=== PATIENT | male | born 1980 | race Caucasian/White ===

== ENCOUNTER 2016-08-09 12:14 | Emergency (ER) | payer SELFPAY ==
[2016-08-09 12:28] VITALS: BP 124/85
[2016-08-09 12:45] LABS: Basophils % (Auto) 0.7 % (0.0-1.8); Eosinophils % (Auto) 0.6 % (0.0-4.3); Hematocrit 46.9 % (35.5-45.6); Hemoglobin 16.1 gm/dl (11.8-15.2); Mean Corpuscular HGB Conc 34 % (32-34); Mean Corpuscular Hemoglobin 32 pg (28-32); Mean Corpuscular Volume 94 fl (84-94); Platelet Count 364 K/mm3 (140-440); Red Cell Distribution Width 13.9 % (13.2-15.2); White Blood Count 9.8 K/mm3 (4.5-11.0)
[2016-08-09 13:03] LABS: Anion Gap 28 mmol/L; Blood Urea Nitrogen 10 mg/dL (9-20); Calcium 8.6 mg/dL (8.4-10.2); Carbon Dioxide 21 mmol/L (22-30); Glucose 136 mg/dL (75-100); Potassium 3.6 mmol/L (3.6-5.0); Sodium 142 mmol/L (137-145)
--- NOTE | 2016-08-12 09:38 | ED Elopement Review ---
ED Pt Elopement review - Results review Lab results: Laboratory Tests 08/09/16 08/09/16 08/09/16 12:31 12:31 12:31 WBC 9.8 RBC 5.00 Hgb 16.1 H Hct 46.9 H MCV 94 MCH 32 MCHC 34 RDW 13.9 Plt Count 364 Lymph % (Auto) 28.5 [place] % (Auto) 6.1 Eos % (Auto) 0.6 Baso % (Auto) 0.7 Lymph # 2.8 [place] # 0.6 Eos # 0.1 Baso # 0.1 Seg Neutrophils % 64.1 Seg Neutrophils # 6.3 Sodium 142 Potassium 3.6 Chloride 97.0 L Carbon Dioxide 21 L Anion Gap 28 BUN 10 Creatinine 0.8 Estimated GFR > 60 BUN/Creatinine Ratio 12.50 Glucose 136 H Calcium 8.6 Plasma/Serum Alcohol 0.32 H - Call Back decision Pt Call Back Decision: No action required
== END 2016-08-09 19:35 | disposition left against medical advice (07) ==
LOC: ED 12:14
DX: F10.129 Alcohol abuse with intoxication, unspecified (principal); M79.1 Myalgia; R21 Rash and other nonspecific skin eruption; Z53.21 Procedure and treatment not carried out due to patient leaving prior to being seen by health care provider
CPT/HCPCS: 36415; 80048; 85025; G0480; 80320

== ENCOUNTER 2016-08-10 09:41 | Inpatient (IN) | payer OTHER ==
[2016-08-10 10:49] LABS: Basophils % (Auto) 0.3 % (0.0-1.8); Eosinophils % (Auto) 0.1 % (0.0-4.3); Hematocrit 48.3 % (35.5-45.6); Hemoglobin 15.8 gm/dl (11.8-15.2); Mean Corpuscular HGB Conc 33 % (32-34); Mean Corpuscular Hemoglobin 31 pg (28-32); Mean Corpuscular Volume 94 fl (84-94); Platelet Count 368 K/mm3 (140-440); Red Blood Count 5.15 M/mm3 (3.65-5.03); Red Cell Distribution Width 13.8 % (13.2-15.2); White Blood Count 12.2 K/mm3 (4.5-11.0)
[2016-08-10 10:51] LABS: Anion Gap 32 mmol/L; Blood Urea Nitrogen 10 mg/dL (9-20); Calcium 8.7 mg/dL (8.4-10.2); Carbon Dioxide 19 mmol/L (22-30); Chloride 92.3 mmol/L (98-107); Glucose 103 mg/dL (75-100); Potassium 3.9 mmol/L (3.6-5.0); Sodium 139 mmol/L (137-145)
[2016-08-10] MEDS ORDERED: NACL 0.9% 1000 ML 1,000 ML IV ONE ×3 (14:05→19:17)
[2016-08-10] MEDS ORDERED: NACL 0.9% 1000 ML 1,000 ML ONE (14:09)
[2016-08-10] MEDS ORDERED: ATIVAN IV ONE (15:00)
--- NOTE | 2016-08-10 15:06 | Emergency Department Report ---
ED Alcohol HPI - General Chief Complaint: Psych Stated Complaint: BODY PAIN Time Seen by Provider: 08/10/16 14:53 Source: patient, EMS Mode of arrival: Wheelchair Limitations: Other - History of Present Illness Initial Comments: The patient comes into the ER today after being brought in by EMS. Through translation, patient states that he lives with his brother but that he stayed in a hotel last night. Patient states that he vomited after being discharged from this ER yesterday and that he has not been feeling good since going home. Patient denies drinking any more alcohol since being discharged. Patient does state that he has vomited blood a couple times as well. Patient currently complaining of abdominal pain, left-sided chest pain, left shoulder pain, headache. Patient denies any suicidal ideations. Patient denies any other drug use other than alcohol. Patient states that he has been drinking daily for the past 1.5 months. - Related Data Allergies Allergy/AdvReac Type Severity Reaction Status Date / Time No Known Allergies Allergy Unverified 08/09/16 12:23 ED Review of Systems ROS: Stated complaint: BODY PAIN Other details as noted in HPI Constitutional: denies: chills, fever Eyes: denies: eye pain, eye discharge, vision change ENT: denies: ear pain, throat pain Respiratory: denies: cough, shortness of breath, wheezing Cardiovascular: chest pain (left lateral chest wall pain). denies: palpitations , edema Endocrine: no symptoms reported Gastrointestinal: abdominal pain, nausea, vomiting, hematemesis. denies: diarrhea Genitourinary: denies: urgency, dysuria Musculoskeletal: arthralgia (left shoulder pain). denies: back pain, joint swelling Skin: denies: rash, lesions Neurological: denies: headache, weakness, paresthesias Psychiatric: other (extremity shaking and tremors). denies: anxiety, depression Hematological/Lymphatic: denies: easy bleeding, easy bruising ED Past Medical Hx - Past Medical History Previous Medical History?: Yes Hx Psychiatric Treatment: Yes (drug use) - Surgical History Past Surgical History?: No - Social History Smoking Status: Current Every Day Smoker Substance Use Type: Alcohol, Marijuana ED Physical Exam - General Limitations: Other General appearance: alert, in no apparent distress, appears intoxicated, lethargic - Head Head exam: Present: atraumatic, normocephalic - Eye Eye exam: Present: normal appearance, PERRL - ENT ENT exam: Present: mucous membranes moist - Neck Neck exam: Present: normal inspection - Respiratory Respiratory exam: Present: normal lung sounds bilaterally, chest wall tenderness. Absent: respiratory distress, wheezes, rales, rhonchi, decreased breath sounds - Cardiovascular Cardiovascular Exam: Present: normal rhythm, tachycardia. Absent: systolic murmur, diastolic murmur, rubs, gallop - GI/Abdominal GI/Abdominal exam: Present: soft, tenderness (epigastric abdominal tenderness), normal bowel sounds. Absent: distended, guarding, rebound - Rectal Rectal exam: Present: deferred - Extremities Exam Extremities exam: Present: normal inspection, tenderness (left anterior shoulder tenderness) - Back Exam Back exam: Present: normal inspection - Neurological Exam Neurological exam: Present: alert, oriented X3, CN II-XII intact - Psychiatric Psychiatric exam: Present: normal affect, normal mood. Absent: agitated, homicidal ideation, suicidal ideation - Skin Skin exam: Present: warm, dry, intact, normal color, diaphoretic. Absent: rash ED Course Vital Signs 08/10/16 08/10/16 08/10/16 10:13 13:47 14:00 Temperature 98.7 F Pulse Rate 138 H 128 H Respiratory 18 22 Rate Blood Pressure 135/86 135/81 127/86 O2 Sat by Pulse 98 96 Oximetry 08/10/16 08/10/16 08/10/16 14:16 14:30 14:46 Temperature Pulse Rate 124 H 129 H 131 H Respiratory 16 18 16 Rate Blood Pressure 135/81 135/81 135/81 O2 Sat by Pulse 97 97 98 Oximetry 08/10/16 08/10/16 08/10/16 15:00 15:16 15:30 Temperature Pulse Rate 135 H 135 H 128 H Respiratory 14 30 H 14 Rate Blood Pressure 118/88 118/88 134/85 O2 Sat by Pulse 99 100 98 Oximetry 08/10/16 08/10/16 08/10/16 15:44 15:56 16:00 Temperature Pulse Rate 135 H 128 H Respiratory 14 19 14 Rate Blood Pressure O2 Sat by Pulse 99 100 100 Oximetry 08/10/16 08/10/16 08/10/16 16:15 16:18 16:30 Temperature 99 F Pulse Rate 132 H 143 H Respiratory 17 12 Rate Blood Pressure 134/79 132/71 O2 Sat by Pulse 100 98 Oximetry 08/10/16 08/10/16 16:45 17:00 Temperature Pulse Rate 142 H 146 H Respiratory 13 17 Rate Blood Pressure 124/76 120/74 O2 Sat by Pulse 93 96 Oximetry ED Medical Decision Making - Lab Data Result diagrams: 08/10/16 10:22 08/10/16 10:22 Lab Results 08/10/16 08/10/16 08/10/16 Range/Units 10:22 10:22 10:22 WBC 12.2 H (4.5-11.0) K/mm3 RBC 5.15 H (3.65-5.03) M/mm3 Hgb 15.8 H (11.8-15.2) gm/dl Hct 48.3 H (35.5-45.6) % MCV 94 (84-94) fl MCH 31 (28-32) pg MCHC 33 (32-34) % RDW 13.8 (13.2-15.2) % Plt Count 368 (140-440) K/mm3 Lymph % (Auto) 10.4 L (13.4-35.0) % [place] % (Auto) 5.3 (0.0-7.3) % Eos % (Auto) 0.1 (0.0-4.3) % Baso % (Auto) 0.3 (0.0-1.8) % Lymph # 1.3 (1.2-5.4) K/mm3 [place] # 0.6 (0.0-0.8) K/mm3 Eos # 0.0 (0.0-0.4) K/mm3 Baso # 0.0 (0.0-0.1) K/mm3 Seg Neutrophils % 83.9 H (40.0-70.0) % Seg Neutrophils # 10.2 H (1.8-7.7) K/mm3 PT (12.2-14.9) Sec. INR (0.87-1.13) APTT (24.2-36.6) Sec. Sodium 139 (137-145) mmol/L Potassium 3.9 (3.6-5.0) mmol/L Chloride 92.3 L (98-107) mmol/L Carbon Dioxide 19 L (22-30) mmol/L Anion Gap 32 mmol/L BUN 10 (9-20) mg/dL Creatinine 0.8 (0.8-1.5) mg/dL Estimated GFR > 60 ml/min BUN/Creatinine Ratio 12.50 % Glucose 103 H (75-100) mg/dL Calcium 8.7 (8.4-10.2) mg/dL Total Bilirubin (0.1-1.2) mg/dL Direct Bilirubin (0-0.2) mg/dL Indirect Bilirubin mg/dL AST (5-40) units/L ALT (7-56) units/L Alkaline Phosphatase (35-129) units/L Troponin T (0.00-0.029) ng/mL Total Protein (6.3-8.2) g/dL Albumin (3.9-5) g/dL Albumin/Globulin Ratio % Lipase (13-60) units/L Urine Color (Yellow) Urine Turbidity (Clear) Urine pH (5.0-7.0) Ur Specific [place] (1.003-1.030) Urine Protein (Negative) mg/dL Urine Glucose (UA) (Negative) mg/dL Urine Ketones (Negative) mg/dL Urine Blood (Negative) Urine Nitrite (Negative) Urine Bilirubin (Negative) Urine Urobilinogen (<2.0) mg/dL Ur Leukocyte Esterase (Negative) Urine WBC (Auto) (0.0-6.0) /HPF Urine RBC (Auto) (0.0-6.0) /HPF Hyaline Casts /LPF Urine Mucus /HPF Urine Opiates Screen Urine Methadone Screen Ur Barbiturates Screen Ur Phencyclidine Scrn Ur Amphetamines Screen U Benzodiazepines Scrn Urine Cocaine Screen U Marijuana (THC) Screen Plasma/Serum Alcohol 0.23 H (0-0.07) gm% 08/10/16 08/10/16 08/10/16 Range/Units 15:29 15:29 15:44 WBC (4.5-11.0) K/mm3 RBC (3.65-5.03) M/mm3 Hgb (11.8-15.2) gm/dl Hct (35.5-45.6) % MCV (84-94) fl MCH (28-32) pg MCHC (32-34) % RDW (13.2-15.2) % Plt Count (140-440) K/mm3 Lymph % (Auto) (13.4-35.0) % [place] % (Auto) (0.0-7.3) % Eos % (Auto) (0.0-4.3) % Baso % (Auto) (0.0-1.8) % Lymph # (1.2-5.4) K/mm3 [place] # (0.0-0.8) K/mm3 Eos # (0.0-0.4) K/mm3 Baso # (0.0-0.1) K/mm3 Seg Neutrophils % (40.0-70.0) % Seg Neutrophils # (1.8-7.7) K/mm3 PT 14.1 (12.2-14.9) Sec. INR 1.10 (0.87-1.13) APTT 27.0 (24.2-36.6) Sec. Sodium (137-145) mmol/L Potassium (3.6-5.0) mmol/L Chloride (98-107) mmol/L Carbon Dioxide (22-30) mmol/L Anion Gap mmol/L BUN (9-20) mg/dL Creatinine (0.8-1.5) mg/dL Estimated GFR ml/min BUN/Creatinine Ratio % Glucose (75-100) mg/dL Calcium (8.4-10.2) mg/dL Total Bilirubin 0.50 (0.1-1.2) mg/dL Direct Bilirubin < 0.2 (0-0.2) mg/dL Indirect Bilirubin 0.3 mg/dL AST 64 H (5-40) units/L ALT 53 (7-56) units/L Alkaline Phosphatase 91 (35-129) units/L Troponin T < 0.010 (0.00-0.029) ng/mL Total Protein 6.4 (6.3-8.2) g/dL Albumin 3.7 L (3.9-5) g/dL Albumin/Globulin Ratio 1.4 % Lipase 59 (13-60) units/L Urine Color Yellow (Yellow) Urine Turbidity Clear (Clear) Urine pH 5.0 (5.0-7.0) Ur Specific [place] 1.019 (1.003-1.030) Urine Protein 30 mg/dl (Negative) mg/dL Urine Glucose (UA) Neg (Negative) mg/dL Urine Ketones 20 (Negative) mg/dL Urine Blood Neg (Negative) Urine Nitrite Neg (Negative) Urine Bilirubin Neg (Negative) Urine Urobilinogen < 2.0 (<2.0) mg/dL Ur Leukocyte Esterase Neg (Negative) Urine WBC (Auto) 1.0 (0.0-6.0) /HPF Urine RBC (Auto) 1.0 (0.0-6.0) /HPF Hyaline Casts 4 /LPF Urine Mucus 1+ /HPF Urine Opiates Screen Urine Methadone Screen Ur Barbiturates Screen Ur Phencyclidine Scrn Ur Amphetamines Screen U Benzodiazepines Scrn Urine Cocaine Screen U Marijuana (THC) Screen Plasma/Serum Alcohol (0-0.07) gm% 08/10/16 Range/Units 15:44 WBC (4.5-11.0) K/mm3 RBC (3.65-5.03) M/mm3 Hgb (11.8-15.2) gm/dl Hct (35.5-45.6) % MCV (84-94) fl MCH (28-32) pg MCHC (32-34) % RDW (13.2-15.2) % Plt Count (140-440) K/mm3 Lymph % (Auto) (13.4-35.0) % [place] % (Auto) (0.0-7.3) % Eos % (Auto) (0.0-4.3) % Baso % (Auto) (0.0-1.8) % Lymph # (1.2-5.4) K/mm3 [place] # (0.0-0.8) K/mm3 Eos # (0.0-0.4) K/mm3 Baso # (0.0-0.1) K/mm3 Seg Neutrophils % (40.0-70.0) % Seg Neutrophils # (1.8-7.7) K/mm3 PT (12.2-14.9) Sec. INR (0.87-1.13) APTT (24.2-36.6) Sec. Sodium (137-145) mmol/L Potassium (3.6-5.0) mmol/L Chloride (98-107) mmol/L Carbon Dioxide (22-30) mmol/L Anion Gap mmol/L BUN (9-20) mg/dL Creatinine (0.8-1.5) mg/dL Estimated GFR ml/min BUN/Creatinine Ratio % Glucose (75-100) mg/dL Calcium (8.4-10.2) mg/dL Total Bilirubin (0.1-1.2) mg/dL Direct Bilirubin (0-0.2) mg/dL Indirect Bilirubin mg/dL AST (5-40) units/L ALT (7-56) units/L Alkaline Phosphatase (35-129) units/L Troponin T (0.00-0.029) ng/mL Total Protein (6.3-8.2) g/dL Albumin (3.9-5) g/dL Albumin/Globulin Ratio % Lipase (13-60) units/L Urine Color (Yellow) Urine Turbidity (Clear) Urine pH (5.0-7.0) Ur Specific [place] (1.003-1.030) Urine Protein (Negative) mg/dL Urine Glucose (UA) (Negative) mg/dL Urine Ketones (Negative) mg/dL Urine Blood (Negative) Urine Nitrite (Negative) Urine Bilirubin (Negative) Urine Urobilinogen (<2.0) mg/dL Ur Leukocyte Esterase (Negative) Urine WBC (Auto) (0.0-6.0) /HPF Urine RBC (Auto) (0.0-6.0) /HPF Hyaline Casts /LPF Urine Mucus /HPF Urine Opiates Screen Presumptive negative Urine Methadone Screen Presumptive negative Ur Barbiturates Screen Presumptive negative Ur Phencyclidine Scrn Presumptive negative Ur Amphetamines Screen Presumptive negative U Benzodiazepines Scrn Presumptive negative Urine Cocaine Screen Presumptive negative U Marijuana (THC) Screen Presumptive negative Plasma/Serum Alcohol (0-0.07) gm% - EKG Data -: EKG Interpreted by [place] EKG shows normal: sinus rhythm Rate: tachycardia - EKG Data 08/10/16 16:24 Sinus tachycardia at 1 31 bpm. No T-wave inversion noted. - Radiology Data Radiology results: report reviewed CT report of abdomen and pelvis with contrast reveals fatty liver without any other acute process. - Medical Decision Making After several doses of IV Ativan, 2 L of normal saline IV fluids, patient continues to stay tachycardic in the 130s. Patient given Protonix 40 mg IV, started on D5 normal saline and given dose of morphine 2 mg IV here in the ER. Discussed case and treatment plan with attending Dr. Angela M.D. and recommends admitting the patient. Spoke with hospitalist Dr. Kimberlee MD and he accepts patient to [facility]. Discussed results and concerns with patient and family in room. Patient family are in agreement with treatment plan. Critical care attestation.: If time is entered above; I have spent that time in minutes in the direct care of this critically ill patient, excluding procedure time. ED Disposition Clinical Impression: Alcohol intoxication, Abdominal pain, Tachycardia Disposition: OP ADMITTED IP TO THIS HOSP Is pt being admited?: Yes Does the pt Need Aspirin: No Condition: Stable Referrals: PRIMARY CARE, [Primary Care Provider] - 3-5 Days
--- NOTE | 2016-08-10 15:20 | XRay Report ---
PORTABLE CHEST INDICATION: Left chest wall pain. COMPARISON: None similar at this institution. FINDINGS: Portable, frontal chest radiograph demonstrate mild to moderately elevated left hemidiaphragm. Clear lungs. Normal cardiomediastinal silhouette. EKG leads. Intact bones. CONCLUSION: Elevated left hemidiaphragm. Thank you for the opportunity to participate in this patient's care.
[2016-08-10] MEDS ORDERED: NACL ONE (15:33)
[2016-08-10] MEDS ORDERED: ATIVAN IV PRN (15:48)
[2016-08-10 16:06] LABS: Alanine Aminotransferase 53 units/L (7-56); Albumin 3.7 g/dL (3.9-5); Albumin/Globulin Ratio 1.4 %; Alkaline Phosphatase 91 units/L (35-129); Lipase 59 units/L (13-60); Total Protein 6.4 g/dL (6.3-8.2)
--- NOTE | 2016-08-10 16:11 | Cat Scan Report ---
CT ABDOMEN AND PELVIS WITH CONTRAST INDICATION: Epigastric pain, vomiting. COMPARISON: None similar. FINDINGS: Abdomen and pelvis CT performed following intravenous administration of 100 cc of Omnipaque 300. LUNG BASES: Elevated left hemidiaphragm incompletely imaged. ABDOMEN: Diffuse fatty hepatic infiltration. Liver though not enlarged. Spleen, pancreatic tail, stomach and splenic flexure noted subjacent to elevated left hemidiaphragm. Gallbladder, pancreas, adrenals, nonaneurysmal abdominal aorta, IVC and kidneys within normal limits. Nonopacified GI tract evaluation limited, though grossly nonobstructive. Normal appendix. Small fat-containing umbilical hernia with a transverse neck of 0.9 cm. No ascites or size significant adenopathy. PELVIS: Rectosigmoid stool. Grossly unremarkable seminal vesicles, prostate and limited urinary bladder distention. No free fluid or significant adenopathy. Unremarkable bones. CONCLUSION: Fatty liver and elevated left hemidiaphragm, as described. Thank you for the opportunity to participate in this patient's care.
[2016-08-10 16:12] LABS: Bilirubin,Direct < 0.2 mg/dL (0-0.2); Bilirubin,Indirect 0.3 mg/dL
[2016-08-10 16:15] LABS: INR 1.1 (0.87-1.13)
[2016-08-10] MEDS: ATIVAN IV PRN ×2 (16:30→17:32)
[2016-08-10 16:41] LABS: Urine Drugs of Abuse Note Disclamer
[2016-08-10 16:54] LABS: Bilirubin,Urine NEG (Negative); Blood,Urine NEG (Negative); Ketones,Urine 20 mg/dL (Negative); Leukocyte Esterase,Urine NEG (Negative); Mucus,Urine 1+ /HPF; Nitrite,Urine NEG (Negative); Urobilinogen,Urine < 2.0 mg/dL (<2.0)
[2016-08-10] MEDS ORDERED: PROTONIX IV ONE ×2 (17:19→19:22)
[2016-08-10] MEDS ORDERED: MORPHINE IV ONE (17:34)
[2016-08-10] MEDS ORDERED: D5NS 1,000 ML IV SCH (18:00)
--- NOTE | 2016-08-10 18:23 | Admit Criteria Form ---
Admission Criteria Documentation: TELEMETRY CARE Telemetry Admission Guidelines (Place 'X' for any and all applicable criteria): Admission to telemetry [A] may be indicated for ANY ONE of the following(1)(2)(3 )(4)(5): [X ]I. Cardiac disease, including ANY ONE of the following (9)(10)(11)(12)( 13): [ ]a) Postacute DC [ ]b) Low-risk patients with ST-segment elevation DC who have undergone successful percutaneous coronary intervention [ ]c) Unstable angina [ ]d) Suspected DC (until it is ruled out) [ ]e) Post cardiac surgery (first 48 to 72 hours unless complications occur) [ X]f) Acute arrhythmias (including significant tachycardia or bradycardia) [B] [ ]g) Firing of an implantable cardioverter defibrillator [C] [ ]h) Suspected pacemaker or implantable cardioverter defibrillator malfunction (10) [ ]i) New administration or adjustment of an antiarrhythmic drug [D ] [ ]j) Child admitted for acute congestive heart failure [ ]j) Long QT syndrome [ ]k) Advanced heart block (eg, second-degree Mobitz type II, third- degree heart block) [ ]l) Acute myocarditis or pericarditis [ ]m) Short-term (ambulatory or inpatient) monitoring after a cardiac procedure as indicated by ANY ONE of the following [E]: [ ]i) Electrophysiologic studies [ ]ii) Percutaneous coronary intervention with stent placement [ ]iii) Pacemaker placement with cardiac conduction defect [ ]iv) Implantable cardiac defibrillator placement [ ]II. Drug overdose or poisoning with substance that causes arrhythmias or QT prolongation (eg, phenothiazines, sympathomimetic agents, cyclic antidepressants, digitalis, antiarrhythmic drugs)(15) [ ]III. Short-term (ambulatory or inpatient) monitoring after therapeutic or diagnostic procedure requiring conscious sedation or anesthesia (eg, endoscopy, elective cardioversion) [ ]IV. Acute cerebrovascular even[F](18) [ ]V. Massive blood transfusion (eg, at least 10 units of packed red blood cells in 24 hours) [ ]. Variceal bleeding after endoscopy, sclerotherapy, or IV vasopressin [ ]VII. Uncorrected electrolyte abnormalities associated with an increased risk of dangerous arrhythmia [G]; examples include [ ]a) Hyperkalemia with attributable ECG changes [ ]b) Potassium greater than 6.5 mmol/L (mEq/L) in a patient without history of chronic renal disease [ ]c) Prolonged QT attributed to hypokalemia, hypomagnesemia, or hypocalcemia [ ]VIII.Unexplained syncope or other neurologic event suspected of being due to arrhythmia due to a finding that increases risk; examples include(19)(20)(21): [ ]a) High-risk ECG findings (eg, bifascicular block, bradycardia, abnormal QT interval, ventricular pre- excitation) [ ]b) History of previous syncope due to arrhythmia [ ]c) Abnormal ventricular function (eg, reduced ejection fraction ) [ ]d) Exertional or supine syncope [ ]e) Concerning syncope characteristics (eg, sudden loss of consciousness without prodrome) [ ]f) Family history of sudden [ ]g) Use of arrhythmogenic medication [ ]h) Suspected cardiac ischemia [ ]i) Known channelopathy (eg, long QT syndrome, Brugada syndrome, or catecholaminergic paroxysmal ventricular tachycardia) [ ]j) Known structural heart disease (eg, hypertrophic cardiomyopathy , severe valvular disease) [ ]k) Palpitations preceding syncope The original [employer] content created by [employer] has been revised. The portions of the content which have been revised are identified through the use of italic text or in bold, and [employer] [facility] has neither reviewed nor approved the modified material. All other unmodified content is copyright [employer]. Please see references footnoted in the original [employer] edition 2016 Admission Criteria Met: Yes
[2016-08-10] MEDS ORDERED: ATIVAN ONE (21:02)
--- NOTE | 2016-08-10 23:52 | Event Note ---
Date: 08/10/16 See H/p in reports ETOH Dependence Delirium Tremens Acute Gastritis
[2016-08-11] MEDS ORDERED: LIBRIUM PO ONE (00:39)
[2016-08-11] MEDS: HALDOL IV PRN (02:05)
[2016-08-11] MEDS ORDERED: VITAMIN B-1 100 MG, FOLVITE 1 MG, INFUVITE 10 ML in NACL 0.9% 1000 ML 1,000 ML IV ONE (06:42)
[2016-08-11] MEDS: 1: FOLVITE 1 MG, INFUVITE 10 ML, VITAMIN B-1 100 MG in NACL 0.9% 1000 ML 988.8 ML 2: NA IV SCH ×2 (07:05→20:23)
--- NOTE | 2016-08-11 07:54 | Progress Note ---
Assessment and Plan Assessment and plan: 36M with etoh withdrawal Delireum Tremens continue CIWA protocol Etoh dependence patient was counseled on cessation, cont B1 and folate Metabolic encephalopathy due to DTs, continue CIWA protocol as above, continue IVF History Interval history: He has been altered and agitated, has been restless and tremorous Hospitalist Physical - Physical exam Narrative exam: General: somnolent, disheveled HEENT: MMM, EOMI cardiac: S1-S2 heard lungs: clear to auscultation, abdomen: soft, nontender, nondistended bowel sounds positive extremities: no edema clubbing or cyanosis Skin: no rash or lesion Neuro: no focal deficit Psych: altered, oriented only to self, confused, clearly in etoh withdrawal - Constitutional Vitals: Temp Pulse Resp BP Pulse Ox 99 F 114 H 16 130/74 89 08/10/16 16:18 08/11/16 05:30 08/11/16 05:30 08/11/16 05:30 08/11/16 05:30 Results - Labs CBC & Chem 7: 08/11/16 10:22 08/11/16 10:22 Labs: Laboratory Last Values WBC 12.2 K/mm3 (4.5-11.0) H 08/10/16 10:22 RBC 5.15 M/mm3 (3.65-5.03) H 08/10/16 10:22 Hgb 15.8 gm/dl (11.8-15.2) H 08/10/16 10:22 Hct 48.3 % (35.5-45.6) H 08/10/16 10:22 MCV 94 fl (84-94) 08/10/16 10:22 MCH 31 pg (28-32) 08/10/16 10:22 MCHC 33 % (32-34) 08/10/16 10:22 RDW 13.8 % (13.2-15.2) 08/10/16 10:22 Plt Count 368 K/mm3 (140-440) 08/10/16 10:22 Lymph % (Auto) 10.4 % (13.4-35.0) L 08/10/16 10:22 [place] % (Auto) 5.3 % (0.0-7.3) 08/10/16 10:22 Eos % (Auto) 0.1 % (0.0-4.3) 08/10/16 10:22 Baso % (Auto) 0.3 % (0.0-1.8) 08/10/16 10:22 Lymph # 1.3 K/mm3 (1.2-5.4) 08/10/16 10:22 [place] # 0.6 K/mm3 (0.0-0.8) 08/10/16 10:22 Eos # 0.0 K/mm3 (0.0-0.4) 08/10/16 10:22 Baso # 0.0 K/mm3 (0.0-0.1) 08/10/16 10:22 Seg Neutrophils % 83.9 % (40.0-70.0) H 08/10/16 10:22 Seg Neutrophils # 10.2 K/mm3 (1.8-7.7) H 08/10/16 10:22 PT 14.1 Sec. (12.2-14.9) 08/10/16 15:29 INR 1.10 (0.87-1.13) 08/10/16 15:29 APTT 27.0 Sec. (24.2-36.6) 08/10/16 15:29 Sodium 139 mmol/L (137-145) 08/10/16 10:22 Potassium 3.9 mmol/L (3.6-5.0) 08/10/16 10:22 Chloride 92.3 mmol/L (98-107) L 08/10/16 10:22 Carbon Dioxide 19 mmol/L (22-30) L 08/10/16 10:22 Anion Gap 32 mmol/L 08/10/16 10:22 BUN 10 mg/dL (9-20) 08/10/16 10:22 Creatinine 0.8 mg/dL (0.8-1.5) 08/10/16 10:22 Estimated GFR > 60 ml/min 08/10/16 10:22 BUN/Creatinine Ratio 12.50 % 08/10/16 10:22 Glucose 103 mg/dL (75-100) H 08/10/16 10:22 Calcium 8.7 mg/dL (8.4-10.2) 08/10/16 10:22 Total Bilirubin 0.50 mg/dL (0.1-1.2) 08/10/16 15:29 Direct Bilirubin < 0.2 mg/dL (0-0.2) 08/10/16 15:29 Indirect Bilirubin 0.3 mg/dL 08/10/16 15:29 AST 64 units/L (5-40) H 08/10/16 15:29 ALT 53 units/L (7-56) 08/10/16 15:29 Alkaline Phosphatase 91 units/L (35-129) 08/10/16 15:29 Troponin T < 0.010 ng/mL (0.00-0.029) 08/10/16 15:29 Total Protein 6.4 g/dL (6.3-8.2) 08/10/16 15:29 Albumin 3.7 g/dL (3.9-5) L 08/10/16 15:29 Albumin/Globulin Ratio 1.4 % 08/10/16 15:29 Lipase 59 units/L (13-60) 08/10/16 15:29 Urine Color Yellow (Yellow) 08/10/16 15:44 Urine Turbidity Clear (Clear) 08/10/16 15:44 Urine pH 5.0 (5.0-7.0) 08/10/16 15:44 Ur Specific [place] 1.019 (1.003-1.030) 08/10/16 15:44 Urine Protein 30 mg/dl mg/dL (Negative) 08/10/16 15:44 Urine Glucose (UA) Neg mg/dL (Negative) 08/10/16 15:44 Urine Ketones 20 mg/dL (Negative) 08/10/16 15:44 Urine Blood Neg (Negative) 08/10/16 15:44 Urine Nitrite Neg (Negative) 08/10/16 15:44 Urine Bilirubin Neg (Negative) 08/10/16 15:44 Urine Urobilinogen < 2.0 mg/dL (<2.0) 08/10/16 15:44 Ur Leukocyte Esterase Neg (Negative) 08/10/16 15:44 Urine WBC (Auto) 1.0 /HPF (0.0-6.0) 08/10/16 15:44 Urine RBC (Auto) 1.0 /HPF (0.0-6.0) 08/10/16 15:44 Hyaline Casts 4 /LPF 08/10/16 15:44 Urine Mucus 1+ /HPF 08/10/16 15:44 Urine Opiates Screen Presumptive negative 08/10/16 15:44 Urine Methadone Screen Presumptive negative 08/10/16 15:44 Ur Barbiturates Screen Presumptive negative 08/10/16 15:44 Ur Phencyclidine Scrn Presumptive negative 08/10/16 15:44 Ur Amphetamines Screen Presumptive negative 08/10/16 15:44 U Benzodiazepines Scrn Presumptive negative 08/10/16 15:44 Urine Cocaine Screen Presumptive negative 08/10/16 15:44 U Marijuana (THC) Screen Presumptive negative 08/10/16 15:44 Drugs of Abuse Note Disclamer 08/10/16 15:44 Plasma/Serum Alcohol 0.23 gm% (0-0.07) H 08/10/16 10:22
--- NOTE | 2016-08-11 08:09 | History and Physical Report ---
CHIEF COMPLAINT: Vomiting after being discharged from the ER. HISTORY OF PRESENT ILLNESS: This 36-year-old male with a history of severe alcoholism, comes in for vomiting blood a couple of times. The patient had a lot of alcohol. He was seen in the ER yesterday. ____ was treated and discharged. Today, he comes in again for retching and vomiting. The patient states he apparently vomited some blood tinged vomitus. The patient also was slightly agitated because of his dependence on alcohol. PAST MEDICAL HISTORY: Significant for psychiatric treatment for drug use. PAST SURGICAL HISTORY: None. SOCIAL HISTORY: He smokes about a pack a day. Alcohol about a bottle of tequila every day. Marijuana off and on. FAMILY HISTORY: No significant family history. REVIEW OF SYSTEMS: CONSTITUTIONAL: No weight loss, no weight gain, no fever, no chills. HEENT: No sore throat, no postnasal drip. CARDIOVASCULAR AND RESPIRATORY: No shortness of breath, no chest pain, no wheezing, no palpitations, no diaphoresis. GASTROINTESTINAL: Some epigastric discomfort present. Wretching and vomiting x 3. Some blood stain with vomitus present. No diarrhea, no black tarry stools. GENITOURINARY: No dysuria, no flank pain. MUSCULOSKELETAL: No joint pains. CENTRAL NERVOUS SYSTEM: No syncope, no seizures. Slightly agitated. SKIN: No rashes. PSYCHIATRIC: No depression. No homicidal or suicidal ideation. A 14-point review of systems done otherwise negative. PHYSICAL EXAMINATION: GENERAL: Middle-aged male, slightly anxious, lying calmly in bed. VITAL SIGNS: Temperature is 98.7, pulse is 138, respirations are 18, blood pressure is 135/86. HEENT: Unremarkable. Pupils equal and reactive. NECK: Supple, no lymphadenopathy, no thyromegaly. LUNGS: Clear to auscultation and percussion. Good air entry. CARDIOVASCULAR: S1, S2 heard. No gallop, no murmur, no rub. Apical impulse in left fifth intercostal space and midclavicular line. ABDOMEN: Soft and benign. No hepatosplenomegaly. No guarding, no rigidity. Hernial orifices are normal. EXTREMITIES: Good pedal pulses. No pedal edema. CENTRAL NERVOUS SYSTEM: Alert and oriented x 4, agitated. Tremulous. SKIN: Normal. LABORATORY DATA: Significant for white count of 12.2, H and H is 15.8 and 48.3, platelet count is 368,000. Sodium is 139, potassium is 3.9, chloride is 92.3, bicarbonate is 19, BUN and creatinine is 10 and 0.8, glucose is 103. LFTs normal except AST which is 64. Albumin is slightly low at 3.7. Urine is negative. Drug screen was negative. Review of serum alcohol was 0.23. ASSESSMENT AND PLAN: 1. ETOH dependence. CIWA protocol initiated. 2. Delirium tremens. CIWA protocol and IV fluids have been initiated. 3. Acute gastritis. IV Protonix initiated. If the patient vomits blood or anyone see any blood in his vomitus we will get a GI consult. The patient does not seem to be having blood in his vomitus. His H and H is normal. May have acute gastritis, he has passed some blood streak vomitus. 4. Deep venous thrombosis prophylaxis, SCDs. The patient admitted to the ICU because of the severe delirium tremens. CRITICAL CARE STATEMENT: The high probability of a clinically significant sudden or life-threatening deterioration of the cardiorespiratory system required my full and direct attention, intervention and personal monitoring. The aggregate critical care time was 40 minutes. The time is in addition to time spent performing reported procedures, but includes the following, data review and interpretation, patient assessment and monitoring of vital signs, documentation, medication orders and management. JOB# [id number] LEXI/RICKY
[2016-08-11 10:59] LABS: Basophils % (Auto) 0.8 % (0.0-1.8); Eosinophils % (Auto) 0.6 % (0.0-4.3); Hematocrit 39.3 % (35.5-45.6); Hemoglobin 13.2 gm/dl (11.8-15.2); Mean Corpuscular HGB Conc 34 % (32-34); Mean Corpuscular Hemoglobin 31 pg (28-32); Mean Corpuscular Volume 93 fl (84-94); Platelet Count 209 K/mm3 (140-440); Red Blood Count 4.24 M/mm3 (3.65-5.03); Red Cell Distribution Width 13.9 % (13.2-15.2); White Blood Count 6.4 K/mm3 (4.5-11.0)
[2016-08-11 11:15] LABS: Alanine Aminotransferase 41 units/L (7-56); Albumin 3.5 g/dL (3.9-5); Albumin/Globulin Ratio 1.5 %; Alkaline Phosphatase 83 units/L (35-129); BUN/Creatinine Ratio 8.33; Blood Urea Nitrogen 5 mg/dL (9-20); Calcium 8.3 mg/dL (8.4-10.2); Carbon Dioxide 26 mmol/L (22-30); Glucose 95 mg/dL (75-100); Potassium 3.6 mmol/L (3.6-5.0); Sodium 142 mmol/L (137-145); Total Protein 5.8 g/dL (6.3-8.2)
[2016-08-11 11:30] LABS: Anion Gap 17 mmol/L
[2016-08-11] MEDS: PROTONIX IV SCH ×2 (12:56→23:00)
[2016-08-11] MEDS: ATIVAN IV PRN ×2 (14:24→19:27)
[2016-08-11] MEDS: NACL 0.9% 1000 ML 1,000 ML IV SCH (20:24)
[2016-08-11] MEDS ORDERED: AMBIEN PO SCH (23:26)
[2016-08-12] MEDS: 1: FOLVITE 1 MG, INFUVITE 10 ML, VITAMIN B-1 100 MG in NACL 0.9% 1000 ML 988.8 ML 2: NA IV SCH ×2 (00:39→10:21)
[2016-08-12] MEDS: ATIVAN IV PRN ×5 (06:08→19:01)
[2016-08-12] MEDS ORDERED: TYLENOL PO PRN (10:22)
[2016-08-12] MEDS: PROTONIX PO SCH ×2 (10:59→22:33)
[2016-08-12] MEDS ORDERED: VITAMIN B-1 100 MG, FOLVITE 1 MG, INFUVITE 10 ML in NACL 0.9% 1000 ML 1,000 ML IV ONE (12:00)
--- NOTE | 2016-08-12 18:28 | Consultation ---
History of Present Illness - Reason for Consult Consult date: 08/12/16 Reason for consult: psychiatric evaluation - Chief Complaint Chief complaint: "alcohol" 36 year old male from the [place] seen on the medical floor for psychiatric evaluation. Interview done in patient's algaaciq language of Hebrew with Dr. Sarah Elaine. Mr. Jerome presented to the hospital for complaints of vomiting blood. He has been drinking 20-22 shots of whiskey daily for 10 years. He wants help for alcohol problems but reports not receiving the help he needs. Per the record, he has been to [facility] multiple times for alcohol related complaints. His alcohol level on arrival to the ER was 0.23. AST is 64. His detox is being managed by his medical team. He is currently on CIWA and reporting no distress as far as withdrawal symptoms. He is interested in resources for residential treatment. No SI, no HI. Medications and Allergies Allergies Allergy/AdvReac Type Severity Reaction Status Date / Time No Known Allergies Allergy Unverified 08/09/16 12:23 Home Medications Medication Instructions Recorded Confirmed Last Taken Type No Known Home Medications [No 08/10/16 08/10/16 Unknown History Reported Home Medications] Active Meds: Active Medications Acetaminophen (Tylenol) 650 mg PO Q4H PRN PRN Reason: Pain, Mild (1-3) Last Admin: 08/12/16 10:59 Dose: 650 mg Diphenhydramine HCl (Benadryl) 25 mg PO Q6H PRN PRN Reason: Itching Folic Acid (Folvite) 1 mg PO DAILY LIZZIE Haloperidol Lactate (Haldol) 5 mg IV Q1H PRN PRN Reason: Unrespon. to mult. doses BZD's Last Admin: 08/11/16 02:05 Dose: 5 mg Sodium Chloride (Nacl 0.9% 1000 Ml) 1,000 mls @ 125 mls/hr IV DIRECT LIZZIE Last Admin: 08/11/16 20:24 Dose: 125 mls/hr Thiamine HCl 100 mg/ Folic Acid 1 mg/ Multivitamins/Minerals 10 ml/ Sodium Chloride 1,011.2 mls @ 125 mls/hr IV ONCE ONE Stop: 08/12/16 20:05 Last Admin: 08/12/16 11:01 Dose: 125 mls/hr Lorazepam (Ativan) 2 mg IV Q1HR PRN PRN Reason: CIWA-Ar 8-15 Last Admin: 08/12/16 15:56 Dose: 2 mg Lorazepam (Ativan) 4 mg IV Q1HR PRN PRN Reason: CIWA-Ar 16-25 Last Admin: 08/10/16 17:32 Dose: 4 mg Lorazepam (Ativan) 4 mg IV Q15MIN PRN PRN Reason: CIWA-Ar >25 Last Admin: 08/10/16 21:06 Dose: 4 mg Multivitamins (Theragran Tab) 1 each PO DAILY LIZZIE Pantoprazole Sodium (Protonix) 40 mg PO BID LIZZIE Last Admin: 08/12/16 10:59 Dose: 40 mg Thiamine HCl (Vitamin B-1) 100 mg PO QDAY LIZZIE Zolpidem Tartrate (Ambien) 5 mg PO QHS PRN PRN Reason: Sleep Past psychiatric history - Past Medical History Past Medical History: other (HI four years ago) - past Psychiatric treatment and history Psych: Addictions - Social History Social history: other (homeless) Mental Status Exam - Vital signs Last Vital Signs Temp 98.2 F 08/12/16 16:25 Pulse 110 H 08/12/16 16:25 Resp 20 08/12/16 16:25 BP 113/72 08/12/16 16:25 Pulse Ox 97 08/12/16 16:25 - Exam Orientation: time, place, person Affect: normal Mood: calm Thought content: other (no SI, no HI) Thought Process: Intact Perceptions: none Speech: normal rate and pattern Concentration: focused Motor activity: normal Level of consciousness: alert Memory: Intact Appetite: decreased Interaction: cooperative Results Result Diagrams: 08/11/16 10:22 08/11/16 10:22 All other labs normal. Assessment and Plan Assessment and plan: Impression: Alcohol use disorder, severe possibly resulting medical complications. Recommendations: Resources for residential substance use disorder treatment will be provided Plan to start Antabuse 250mg daily for relapse prevention,plan to make sure patient fully understands to avoid all alcohol based products The medical team will continue to manage detox
[2016-08-12] MEDS: BENADRYL PO PRN ×2 (18:56→22:44)
[2016-08-12] MEDS: NACL 0.9% 1000 ML 1,000 ML IV SCH (19:17)
[2016-08-12] MEDS: AMBIEN PO PRN ×2 (19:25→22:44)
[2016-08-13] MEDS: ATIVAN IV PRN ×2 (00:17→05:30)
[2016-08-13] MEDS: BENADRYL PO PRN (03:00)
[2016-08-13] MEDS: HALDOL IV PRN (03:03)
[2016-08-13 09:40] VITALS: BP 119/71
[2016-08-13] MEDS ORDERED: FOLVITE PO SCH (10:00)
[2016-08-13] MEDS ORDERED: THERAGRAN Tab PO SCH (10:00)
[2016-08-13] MEDS ORDERED: VITAMIN B-1 PO SCH (10:00)
--- NOTE | 2016-08-13 10:22 | Discharge Summary ---
Providers - Providers Date of Admission: 08/10/16 17:51 Attending physician: REBECA BAILEY MD 08/11/16 06:43 Consult to Mental Health [CONS] Routine Reason For Exam: Etoh dependence Place consult to:: WILBER Notified:: WILBER Phone number called:: [phone] Was contact made?: Yes If yes, spoke with:: WILBER Time called:: 09:09 Comment:: PAT NOTIFIED Primary care physician: PHOTOGRAPHER MODEL Hospitalization Condition: Stable Hospital course: 36M with etoh withdrawal, he complained of anxiety, tremulousness and confusion. Delireum Tremens He received the CIWA protocol, he was treated with increasing doses of Ativan, he also received IV fluids, he clinically improved and was out of withdrawal he was counseled on EtOH cessation, he verbalized understanding and was given outpatient resources for cessation., Etoh dependence patient was counseled on cessation, he was given B1 and folate supplements. Metabolic encephalopathy due to DTs, this resolved as the underlying disease resolved. Disposition: DC- TO HOME OR SELFCARE Time spent for discharge: 35 minutes Core Measure Documentation - Palliative Care Palliative Care/ Comfort Measures: Not Applicable - Core Measures Any of the following diagnoses?: none Exam - Constitutional Vitals: Temp Pulse Resp BP Pulse Ox 99.7 F H 93 H 20 119/71 97 08/13/16 08:00 08/13/16 08:00 08/13/16 08:00 08/13/16 08:00 08/13/16 08:00 General appearance: Present: no acute distress, well-nourished - EENT Eyes: Present: PERRL ENT: hearing intact, clear oral mucosa - Neck Neck: Present: supple, normal ROM - Respiratory Respiratory effort: normal Respiratory: bilateral: CTA - Cardiovascular Heart Sounds: Present: S1 & S2. Absent: rub, click - Extremities Extremities: pulses symmetrical, No edema Peripheral Pulses: within normal limits - Abdominal General gastrointestinal: Present: soft, non-tender, non-distended, normal bowel sounds Male genitourinary: Present: normal - Integumentary Integumentary: Present: clear, warm, dry - Musculoskeletal Musculoskeletal: gait normal, strength equal bilaterally - Psychiatric Psychiatric: appropriate mood/affect, intact judgment & insight - Neurologic Neurologic: CNII-XII intact, moves all extremities Plan Follow up with: PRIMARY CARE, [Primary Care Provider] - 3-5 Days Prescriptions: Folic Acid [Folvite] 1 mg PO DAILY #30 tablet Multivitamin Tab [Multiple Vitamin TAB (Theragran)] 1 each PO DAILY #30 tablet Thiamine [Vitamin B-1] 100 mg PO QDAY #30 tablet
[2016-08-13] MEDS: PROTONIX PO SCH (12:06)
== END 2016-08-13 15:59 | disposition home or self-care (01) | DRG 896 ==
LOC: ED 09:41 → 3A 17:51 → CC1 21:34 → 3A 08-11 07:38
PROVIDERS: ADMIT Internal Medicine; ATTEND Internal Medicine
DX: F10.231 Alcohol dependence with withdrawal delirium (principal); G93.41 Metabolic encephalopathy; F17.210 Nicotine dependence, cigarettes, uncomplicated; K29.00 Acute gastritis without bleeding; Z71.41 Alcohol abuse counseling and surveillance of alcoholic; Z59.0 Homelessness
CPT/HCPCS: 36415; 71010; 74177; 80048; 80053; 80074; 80307; 80320; 81001; 83690; 84484; 85025; 85610; 85730; 93005; 93010; 96361; 96374; 96375; 96376; 99285; C9113; G0480; J1630; J2060; J2270; J3411; J7030; J7042; Q9967

== ENCOUNTER 2016-10-11 12:35 | Emergency (ER) | payer OTHER ==
[2016-10-11] MEDS ORDERED: NACL 0.9% 1000 ML 1,000 ML ONE (12:41)
[2016-10-11] MEDS ORDERED: SODIUM BICARBONATE IV ONE (12:55)
[2016-10-11] MEDS ORDERED: INTROPIN DRIP 800 MG/D5W 250 ML IV ONE (12:55)
[2016-10-11] MEDS ORDERED: ADRENALIN ONE (12:55)
[2016-10-11] MEDS ORDERED: CALCIUM CHLORIDE IV ONE (12:55)
[2016-10-11] MEDS ORDERED: LEVOPHED IV ONE (12:55)
[2016-10-11] MEDS ORDERED: AMIDATE IV ONE (13:00)
[2016-10-11] MEDS ORDERED: QUELICIN ONE (13:00)
[2016-10-11] MEDS ORDERED: Vasostrict ONE (13:00)
[2016-10-11] MEDS ORDERED: NACL 0.9% 1000 ML 2,000 ML IV ONE (13:00)
[2016-10-11] MEDS ORDERED: NACL 0.9% 1000 ML 2,000 ML ONE (13:15)
[2016-10-11 13:29] LABS: Basophils % (Auto) 0.4 % (0.0-1.8); Eosinophils % (Auto) 0.1 % (0.0-4.3); Mean Corpuscular HGB Conc 30 % (32-34); Mean Corpuscular Hemoglobin 31 pg (28-32); Mean Corpuscular Volume 105 fl (84-94); Platelet Count 304 K/mm3 (140-440); Red Blood Count 3.85 M/mm3 (3.65-5.03); Red Cell Distribution Width 16.1 % (13.2-15.2); White Blood Count 17.5 K/mm3 (4.5-11.0)
[2016-10-11 13:30] LABS: Hematocrit 40.4 % (35.5-45.6)
[2016-10-11] MEDS ORDERED: GLUCAGEN ONE (13:38)
[2016-10-11] MEDS ORDERED: GLUCAGEN IV ONE (13:39)
[2016-10-11 13:40] LABS: INR 1.57 (0.87-1.13)
[2016-10-11 13:41] LABS: Partial Thromboplastin Time 26.7 Sec. (24.2-36.6)
[2016-10-11 13:54] LABS: Alanine Aminotransferase 68 units/L (7-56); Albumin 3.8 g/dL (3.9-5); Albumin/Globulin Ratio 1.3 %; Alkaline Phosphatase 52 units/L (35-129); Blood Urea Nitrogen 26 mg/dL (9-20); Calcium 8.6 mg/dL (8.4-10.2); Carbon Dioxide 10 mmol/L (22-30); Glucose 327 mg/dL (75-100); Total Protein 6.8 g/dL (6.3-8.2)
[2016-10-11 13:55] LABS: Chloride 110.4 mmol/L (98-107); Sodium 145 mmol/L (137-145)
--- NOTE | 2016-10-11 14:00 | Emergency Department Report ---
ED Altered Mental Status HPI - General Chief Complaint: Altered Mental Status Stated Complaint: CHEST PAIN Time Seen by Provider: 10/11/16 13:52 Source: EMS Mode of arrival: Stretcher Limitations: Language Barrier - History of Present Illness Initial Comments: Patient is a 28-year-old years old male brought by EMS from resident's for chest pain and altered mental status. Patient was vomiting this morning found bradycardic at 38-40 by EMS by the time he got here his oxygen saturation was in the 90s is blood pressure is 65/45. Diaphoretic patient placed on lunchroom monitor. While resuscitating the patient he admitted that he took several medicine to kill himself. This medications include metoprolol, Norvasc , acetaminophen, and aspirin. Patient immediately went into a cardiac arrest CPR started and ACLS protocol followed patient intubated and a right subclavian central line placed and fluids started able to regain the pulse but unfortunately the patient went back into asystole. ACLS continued patient was given calcium and glucagon to counteract the effect of calcium channel and beta blockers. Patient pronounced at 1344. Family informed. MD Complaint: altered mental status, confusion -: This morning Severity: severe Consistency of Symptoms: getting worse Context: alcohol abuse, drug abuse Associated Symptoms: chest pain, diaphoresis, shortness of breath Treatments Prior to Arrival: oxygen - Related Data Home Medications Medication Instructions Recorded Confirmed Last Taken Acetaminophen 500 mg PO 4XD PRN 10/11/16 10/11/16 Unknown Aspirin 325 mg PO DAILY 10/11/16 10/11/16 Unknown AtorvaSTATin [Lipitor] 1 tab PO QHS 10/11/16 10/11/16 Unknown Butalb/Acetamin/Caff 50-325-40 1 tab PO PRN PRN 10/11/16 10/11/16 Unknown Dicyclomine [Bentyl] 1 cap PO 4XD 10/11/16 10/11/16 Unknown HYDROcodone/APAP 10-325 1 tab PO 4XD PRN 10/11/16 10/11/16 Unknown Metoprolol Xl [Metoprolol 1 tab PO DAILY 10/11/16 10/11/16 Unknown SUCCINATE ER TAB] Nifedipine ER 90 mg PO DAILY 10/11/16 10/11/16 Unknown Previous Rx's Medication Instructions Recorded Last Taken Type Folic Acid [Folvite] 1 mg PO DAILY #30 tablet 08/13/16 Unknown Rx Multivitamin Tab [Multiple Vitamin 1 each PO DAILY #30 tablet 08/13/16 Unknown Rx TAB (Theragran)] Thiamine [Vitamin B-1] 100 mg PO QDAY #30 tablet 08/13/16 Unknown Rx Allergies Allergy/AdvReac Type Severity Reaction Status Date / Time No Known Allergies Allergy Unverified 08/09/16 12:23 ED Review of Systems ROS: Stated complaint: CHEST PAIN Other details as noted in HPI Comment: Unobtainable due to pts medical conditions Cardiovascular: chest pain ED Past Medical Hx - Past Medical History Previous Medical History?: Yes Hx Hypertension: Yes Hx Psychiatric Treatment: Yes (drug use) Additional medical history: ETOH abuse - Social History Smoking Status: Unknown if ever smoked - Medications Home Medications: Home Medications Medication Instructions Recorded Confirmed Last Taken Type Folic Acid [Folvite] 1 mg PO DAILY #30 tablet 08/13/16 Unknown Rx Multivitamin Tab [Multiple Vitamin 1 each PO DAILY #30 tablet 08/13/16 Unknown Rx TAB (Theragran)] Thiamine [Vitamin B-1] 100 mg PO QDAY #30 tablet 08/13/16 Unknown Rx Acetaminophen 500 mg PO 4XD PRN 10/11/16 10/11/16 Unknown History Aspirin 325 mg PO DAILY 10/11/16 10/11/16 Unknown History AtorvaSTATin [Lipitor] 1 tab PO QHS 10/11/16 10/11/16 Unknown History Butalb/Acetamin/Caff 50-325-40 1 tab PO PRN PRN 10/11/16 10/11/16 Unknown History Dicyclomine [Bentyl] 1 cap PO 4XD 10/11/16 10/11/16 Unknown History HYDROcodone/APAP 10-325 1 tab PO 4XD PRN 10/11/16 10/11/16 Unknown History Metoprolol Xl [Metoprolol 1 tab PO DAILY 10/11/16 10/11/16 Unknown History SUCCINATE ER TAB] Nifedipine ER 90 mg PO DAILY 10/11/16 10/11/16 Unknown History ED Physical Exam - General Limitations: Language Barrier General appearance: obtunded - Head Head exam: Present: atraumatic, normocephalic - Eye Eye exam: Present: other (pupils are 3 mm reactive) - ENT ENT exam: Present: normal exam - Neck Neck exam: Present: normal inspection - Respiratory Respiratory exam: Present: respiratory distress, decreased breath sounds - Cardiovascular Cardiovascular Exam: Present: bradycardia - GI/Abdominal GI/Abdominal exam: Present: soft. Absent: tenderness, guarding - exam: Present: normal inspection - Extremities Exam Extremities exam: Present: normal inspection - Back Exam Back exam: Present: normal inspection - Neurological Exam Neurological exam: Present: other (O, went down to 30) - Expanded Neurological Exam Expanded Best Eye Response ([place]): (4) open spontaneously Best Motor Response ([place]): (4) withdraws to pain Best Verbal Response ([place]): (2) incomprehsible sounds Mary Total: 10 - Skin Skin exam: Present: warm ED Course Vital Signs 10/11/16 10/11/16 10/11/16 12:28 12:30 12:40 Pulse Rate 73 75 67 Respiratory 43 H 48 H 29 H Rate Blood Pressure 77/56 95/45 O2 Sat by Pulse 91 Oximetry 10/11/16 10/11/16 10/11/16 12:50 13:00 13:10 Pulse Rate 203 H 64 196 H Respiratory 23 12 Rate Blood Pressure 54/32 54/32 O2 Sat by Pulse 76 L Oximetry 10/11/16 13:22 Pulse Rate Respiratory 100 H Rate Blood Pressure 141/108 O2 Sat by Pulse Oximetry - Reevaluation(s) Reevaluation #1: 10/11/16 14:09 Please refer to initial comment and code sheet for more information. 10/11/16 15:26 - Central Line Placement Right SC Consent Obtained: verbal consent, emergent situation Time Out Performed: Yes Patient Placed on Monitor/Pulse Ox: Yes MD Prep: mask, gown, gloves Central Line Prep: Povidone-Iodine 1%, Chlorhexidine scrub, sterile drapes applied Local Anesthesia Used: Lidocaine 2% Ultrasound Used for Placement: No Central Line Lumen Inserted: triple Bloods Obtained for Lab: Yes Central Line Position: good blood return, all ports aspirated, flus, sutured in place with 2-0 Dressing Applied: Tegaderm, sterile gauze/tape Patient Tolerated Procedure: well, no complications Complications: none - Intubation Time Out Performed: Yes Sedative: Etomidate Paralytic: Succinylcholine Size: 4 Assist Device Used: Bougie ET Tube Size: 8 Tube Secured Location: lips Tube Placement Confirmation: visualized tube passing t, equal breath sounds bilat, no breath sounds over epi, confirmation by capnometr Patient Tolerated Procedure: well Intubation Complications: none - Lab Data Result diagrams: 10/11/16 13:13 10/11/16 13:13 Lab Results 10/11/16 10/11/16 10/11/16 Range/Units 13:13 13:13 13:13 WBC 17.5 H (4.5-11.0) K/mm3 RBC 3.85 (3.65-5.03) M/mm3 Hgb 12.0 (11.8-15.2) gm/dl Hct 40.4 (35.5-45.6) % MCV 105 H (84-94) fl MCH 31 (28-32) pg MCHC 30 L (32-34) % RDW 16.1 H (13.2-15.2) % Plt Count 304 (140-440) K/mm3 Lymph % (Auto) 21.7 (13.4-35.0) % [place] % (Auto) 3.0 (0.0-7.3) % Eos % (Auto) 0.1 (0.0-4.3) % Baso % (Auto) 0.4 (0.0-1.8) % Lymph # 3.8 (1.2-5.4) K/mm3 [place] # 0.5 (0.0-0.8) K/mm3 Eos # 0.0 (0.0-0.4) K/mm3 Baso # 0.1 (0.0-0.1) K/mm3 Seg Neutrophils % 74.8 H (40.0-70.0) % Seg Neutrophils # 13.1 H (1.8-7.7) K/mm3 PT 19.6 H (12.2-14.9) Sec. INR 1.57 H (0.87-1.13) APTT 26.7 (24.2-36.6) Sec. Sodium 145 (137-145) mmol/L Potassium Not Reportable Chloride 110.4 H (98-107) mmol/L Carbon Dioxide 10 L (22-30) mmol/L Anion Gap Not Reportable BUN 26 H (9-20) mg/dL Creatinine 2.3 H (0.8-1.5) mg/dL Estimated GFR 32 ml/min BUN/Creatinine Ratio 11.30 % Glucose 327 H (75-100) mg/dL Lactic Acid (0.7-2.0) mmol/L Calcium 8.6 (8.4-10.2) mg/dL Total Bilirubin 0.20 (0.1-1.2) mg/dL AST 43 H (5-40) units/L ALT 68 H (7-56) units/L Alkaline Phosphatase 52 (35-129) units/L Troponin T < 0.010 (0.00-0.029) ng/mL Total Protein 6.8 (6.3-8.2) g/dL Albumin 3.8 L (3.9-5) g/dL Albumin/Globulin Ratio 1.3 % Salicylates (2.8-20.0) mg/dL Acetaminophen (10.0-30.0) ug/mL Plasma/Serum Alcohol (0-0.07) gm% 10/11/16 10/11/16 10/11/16 Range/Units 13:13 13:13 13:13 WBC (4.5-11.0) K/mm3 RBC (3.65-5.03) M/mm3 Hgb (11.8-15.2) gm/dl Hct (35.5-45.6) % MCV (84-94) fl MCH (28-32) pg MCHC (32-34) % RDW (13.2-15.2) % Plt Count (140-440) K/mm3 Lymph % (Auto) (13.4-35.0) % [place] % (Auto) (0.0-7.3) % Eos % (Auto) (0.0-4.3) % Baso % (Auto) (0.0-1.8) % Lymph # (1.2-5.4) K/mm3 [place] # (0.0-0.8) K/mm3 Eos # (0.0-0.4) K/mm3 Baso # (0.0-0.1) K/mm3 Seg Neutrophils % (40.0-70.0) % Seg Neutrophils # (1.8-7.7) K/mm3 PT (12.2-14.9) Sec. INR (0.87-1.13) APTT (24.2-36.6) Sec. Sodium (137-145) mmol/L Potassium Chloride (98-107) mmol/L Carbon Dioxide (22-30) mmol/L Anion Gap BUN (9-20) mg/dL Creatinine (0.8-1.5) mg/dL Estimated GFR ml/min BUN/Creatinine Ratio % Glucose (75-100) mg/dL Lactic Acid 14.00 H* (0.7-2.0) mmol/L Calcium (8.4-10.2) mg/dL Total Bilirubin (0.1-1.2) mg/dL AST (5-40) units/L ALT (7-56) units/L Alkaline Phosphatase (35-129) units/L Troponin T (0.00-0.029) ng/mL Total Protein (6.3-8.2) g/dL Albumin (3.9-5) g/dL Albumin/Globulin Ratio % Salicylates 23.6 H (2.8-20.0) mg/dL Acetaminophen (10.0-30.0) ug/mL Plasma/Serum Alcohol < 0.01 (0-0.07) gm% // Range/Units 13:13 WBC (4.5-11.0) K/mm3 RBC (3.65-5.03) M/mm3 Hgb (11.8-15.2) gm/dl Hct (35.5-45.6) % MCV (84-94) fl MCH (28-32) pg MCHC (32-34) % RDW (13.2-15.2) % Plt Count (140-440) K/mm3 Lymph % (Auto) (13.4-35.0) % [place] % (Auto) (0.0-7.3) % Eos % (Auto) (0.0-4.3) % Baso % (Auto) (0.0-1.8) % Lymph # (1.2-5.4) K/mm3 [place] # (0.0-0.8) K/mm3 Eos # (0.0-0.4) K/mm3 Baso # (0.0-0.1) K/mm3 Seg Neutrophils % (40.0-70.0) % Seg Neutrophils # (1.8-7.7) K/mm3 PT (12.2-14.9) Sec. INR (0.87-1.13) APTT (24.2-36.6) Sec. Sodium (137-145) mmol/L Potassium Chloride (98-107) mmol/L Carbon Dioxide (22-30) mmol/L Anion Gap BUN (9-20) mg/dL Creatinine (0.8-1.5) mg/dL Estimated GFR ml/min BUN/Creatinine Ratio % Glucose (75-100) mg/dL Lactic Acid (0.7-2.0) mmol/L Calcium (8.4-10.2) mg/dL Total Bilirubin (0.1-1.2) mg/dL AST (5-40) units/L ALT (7-56) units/L Alkaline Phosphatase (35-129) units/L Troponin T (0.00-0.029) ng/mL Total Protein (6.3-8.2) g/dL Albumin (3.9-5) g/dL Albumin/Globulin Ratio % Salicylates (2.8-20.0) mg/dL Acetaminophen 87.6 H (10.0-30.0) ug/mL Plasma/Serum Alcohol (0-0.07) gm% Critical Care Time: Yes Critical care time in (mins) excluding proc time.: 78 Critical care attestation.: If time is entered above; I have spent that time in minutes in the direct care of this critically ill patient, excluding procedure time. ED Disposition Clinical Impression: Cardiac arrest Disposition: DC-20 Is pt being admited?: No Condition: Stable Referrals: PRIMARY CARE, [Primary Care Provider] - 3-5 Days
[2016-10-11 14:17] VITALS: BP 141/108
== END 2016-10-11 16:00 ==
LOC: ED 12:35
DX: I46.9 Cardiac arrest, cause unspecified (principal); I10 Essential (primary) hypertension; Z79.82 Long term (current) use of aspirin
CPT/HCPCS: 31500; 36415; 36556; 80053; 82140; 84484; 85025; 85610; 85730; 92950; 93005; 93010; 96361; 96374; 99291; 99292; G0480; J0171; J0330; J1265; J1610; J7030; 80320